=== PATIENT | female | born 1965 ===

== ENCOUNTER → 2018-04-28 | Outpatient (CLI) | payer OTHER ==
[~2018-04-28] MED LIST: Excedrin Extra1 EACH; NEBI5 PO; RIZATRIPTAN10 M1 PO; VENL75ER PO
== END | disposition home or self-care (01) ==
LOC: LAB SHORT 15:15 → LAB 15:15
PROVIDERS: Nurse Practitioner
DX: Z12.4 Encounter for screening for malignant neoplasm of cervix (principal)
CPT/HCPCS: G0145

== ENCOUNTER 2020-12-08 01:25 | Emergency (ER) | payer OTHER ==
[~2020-12-08] VITALS: Ht 162.6 cm; Wt 63.5 kg
[2020-12-08] MEDS ORDERED: ONDA4ODT MM ×2 (03:27→03:44)
== END 2020-12-08 03:56 | disposition home or self-care (01) ==
LOC: ER 01:25
DX: U07.1 COVID-19 (principal); Z87.891 Personal history of nicotine dependence
CPT/HCPCS: 99283

== ENCOUNTER 2020-12-13 06:53 | Emergency (ER) | payer OTHER ==
[~2020-12-13] VITALS: Ht 162.6 cm; Wt 63.5 kg
[~2020-12-13 06:53] MED LIST changes: +ONDA4ODT MM
[2020-12-13] MEDS ORDERED: ONDA4ODT MM (07:30)
[2020-12-13] MEDS ORDERED: BENZ100A PO (07:30)
[2020-12-13] MEDS ORDERED: DICY20 PO (08:01)
== END 2020-12-13 09:10 | disposition home or self-care (01) ==
LOC: ER 06:53
DX: U07.1 COVID-19 (principal); R11.2 Nausea with vomiting, unspecified; I10 Essential (primary) hypertension; Z79.899 Other long term (current) drug therapy; Z79.82 Long term (current) use of aspirin
CPT/HCPCS: 71045; 99285

== ENCOUNTER → 2022-05-08 | Outpatient (CLI) | payer OTHER ==
[~2022-05-08] MED LIST changes: +BENZ100A PO; +DICY20 PO
== END | disposition home or self-care (01) ==
LOC: LAB 12:58 → LAB SHORT 12:58
DX: L03.032 Cellulitis of left toe (principal)
CPT/HCPCS: 87070; 87075; 87077; 87147; 87186; 87205

== ENCOUNTER → 2024-11-24 | Outpatient (CLI) | payer OTHER ==
[2024-11-30 17:04] LABS: HPVG SOURCE Cervical
== END ==
LOC: LAB SHORT 19:13 → LAB 19:13
PROVIDERS: Family Medicine
DX: Z01.419 Encounter for gynecological examination (general) (routine) without abnormal findings (principal)
CPT/HCPCS: 87624; 87625; G0145

== ENCOUNTER → 2025-01-15 | Outpatient (CLI) | payer OTHER ==
[2025-01-15 19:37] LABS: Campylobacter Sp Not Detected (NOT DETECT); E. Coli O157 Not Detected (NOT DETECT); Enteroaggregative E. coli-EAEC Not Detected (NOT DETECT); Enteropathogenic E. coli-EPEC Not Detected (NOT DETECT); Enterotoxigenic E. coli-ETEC Not Detected (NOT DETECT); Salmonella Sp Not Detected (NOT DETECT); Shiga Toxin-prod E. coli-STEC Not Detected (NOT DETECT); Shigella/Enteroin E. coli-EIEC Not Detected (NOT DETECT); Vibrio Sp Not Detected (NOT DETECT)
[2025-01-16 16:10] LABS: Stool Occult Bld Immuno 1 Positive (NEGATIVE)
[2025-01-19 17:56] LABS: CALPROTECTIN,FECAL 32 ug/g (<=49)
[2025-01-22 21:57] LABS: OVA AND PARASITE,FECAL INTERP Negative (Negative)
== END ==
LOC: LAB SHORT 09:01 → LAB 09:01
PROVIDERS: Family Medicine
DX: R19.7 Diarrhea, unspecified (principal)
CPT/HCPCS: 82274; 83993; 87177; 87209; 87507